=== PATIENT | male | born 1995 | race African-American/Black ===

== ENCOUNTER 2025-02-13 14:49 | Emergency (ER) | payer MEDICAID, SELFPAY ==
[2025-02-13 14:55] VITALS: BP 125/78; PULSE 80; RESP 16; TEMP 36.7; O2SAT 100; BMI 23.3
--- NOTE | 2025-02-13 14:59 | ED_ITS ---
HPI - Skin/Abscess/Foreign Bdy General Chief complaint: Skin/Abscess/Foreign Body Stated complaint: Abscesses both underarms Time Seen by Provider: 02/13/25 18:26 Source: patient Mode of arrival: ambulatory Limitations: no limitations History of Present Illness ED Provider: Dilma Alfonso PA-C HPI narrative: 29 yo male with no significant medical history presents to the ER for evaluation of painful lumps in his underarm area for the last 3 days. He reports the areas have been getting more painful and it hurts to move his arms. He denies history of the same. He does not shave the area. He denies any drainage from the area. No other lesions on his body. Not diabetic. No fever or chills. MD complaint: abscess/boil Onset (ago): day(s) Tetanus up to date: yes Location: LUE and RUE Severity: severe Pain Consistency: constant Relieving factors: rest Exacerbating factors: palpation and movement Context: none Associated symptoms: denies other symptoms Treatments prior to arrival: attempted to drain pus at home (warm compresses) Related Data Previous Rx's ?Medication ?Instructions ?Recorded doxycycline hyclate 100 mg tablet 100 mg PO BID #14 tabs 02/13/25 Allergies Allergy/AdvReac Type Severity Reaction Status Date / Time No Known Allergies Allergy Verified 02/13/25 15:01 Review of Systems Review of Systems: Yes all other systems are reviewed and are negative [facility] Social History Social History Smoked in Last 30 Days: No Use of substances other than those prescribed or required for medical reasons: No Advance Directives: No Advance Directives Information Provided: No Physical Exam Vital Signs: Vital Signs: Last Vital Signs Temp 98.5 F 02/13/25 19:18 Pulse 57 02/13/25 19:18 Resp 18 02/13/25 19:18 BP 128/83 02/13/25 19:18 Pulse Ox 100 02/13/25 19:18 O2 Del Method Room Air 02/13/25 19:18 BMI result Body Mass Index 23.3 Appearance: Alert. Oriented X3. appears uncomfortable. HEENT: normal inspection CVS: Normal heart rate and rhythm. Pulses normal. Respiratory: No respiratory distress. Skin: Skin warm and dry. Normal skin color. Normal skin turgor. No rashes. Extremities: bilateral underarms with areas of swelling, tenderness, fluctuance and erythema - right underarm with 3cm x1cm and left underarm 2cm x 1cm with yellow drainage. Neuro: Oriented X 3. grossly normal, nonfocal Course Course Course Narrative: 02/13/25 1459 YUE [place] This is a Rapid Medical Examination (RME) performed by Denys Escamilla PA-C in triage. Full HPI, ROS, assessment and treatment plan per primary provider in the Main ED. Hx: 29 yo M here w/ b/l axillary abscesses x3 days. pain worse w/ mvmt. drainage from L abscess. no fever, reports chills. applying warm compresses. no hx similar. Plan: I&D Medications Administered Discontinued Medications Generic Name Dose Route Start Last Admin Trade Name Freq PRN Reason Stop Dose Admin Acetaminophen 975 mg 02/13/25 18:41 02/13/25 18:50 Acetaminophen 325 Mg Tablet PO 02/13/25 18:42 975 mg ONCE ONE Administration Doxycycline Monohydrate 100 mg 02/13/25 18:41 02/13/25 18:50 Doxycycline Monohydrate 100 Mg Capsule PO 02/13/25 18:42 100 mg ONCE ONE Administration Ibuprofen 600 mg 02/13/25 18:41 02/13/25 18:50 Ibuprofen 600 Mg Tablet PO 02/13/25 18:42 600 mg ONCE ONE Administration Medical Decision Making Medical Decision Making [facility] Narrative: 29 yo male presenting to the ER for evaluation of painful abscesses in his bilateral axillary areas. amenable to I&D and patient agreeable to procedure. tolerated well. given mild surrounding cellulitic changes on the right will treat with coarse of doxycycline. patient counseled on management s/p I&D including warm compresses, abx, and montioring for worsening symptoms. stable for d/c home. Differential Diagnosis Differential Diagnoses: The differential diagnosis associated with the presentation includes abscess, cellulitis, hidradentiits suppritiva, folliculitis, lymphadenoapthy Procedures Abscess I/D Site: upper extremity Side (if applicable): left and right Local Anesthetic: lidocaine 1% Amount of anesthesia used (mL): 1 Technique: incised with blade Irrigation: Yes Packing used?: none Complications: pain Discharge Plan Discharge Clinical Impression: Abscess of skin or subcutaneous tissue Qualifiers: Site of cutaneous abscess: extremity Site of cutaneous abscess of extremity: upper extremity Laterality: unspecified laterality Qualified Code(s): L02.419 - Cutaneous abscess of limb, unspecified Patient Disposition: Home, Self-Care Instructions: Abscess Incision and Drainage (DC) Additional Instructions: Take the prescribed antibiotics as directed, complete the entire course and do not miss any doses - next dose is due in the morning Use warm compresses to the area several times per day Take ibuprofen and tylenol as needed for pain If you develop new or worsening symptoms call 911 or come back to the ER for further evaluation. Prescriptions: New doxycycline hyclate 100 mg tablet 100 mg PO BID Qty: 14 0RF Interventions: ED Discharge Assessment Last Done: 02/13/25 19:18 Discharge Date/Time: 02/13/25 19:21 Print Language: Ugandan
[2025-02-13 16:58] VITALS: BP 117/71; PULSE 57; RESP 16; TEMP 36.8; O2SAT 98
[2025-02-13] MEDS: Ibuprofen 600 MG TABLET PO (18:50)
[2025-02-13] MEDS: Doxycycline Monohydrate 100 MG CAPSULE PO (18:50)
[2025-02-13] MEDS: Acetaminophen 325 MG TABLET 975 MG PO (18:50)
--- NOTE | 2025-02-13 18:59 | PC.NURSE ---
Informed YUE Perez that pt. now c/o chest discomfort/ anxiety after having abscess drained. N o new orders at this time. Informed pt. that PA will come and chat when shes available.
[2025-02-13 19:17] VITALS: BP 128/83; PULSE 57; RESP 18; TEMP 36.9; O2SAT 100
[2025-02-13 19:18] VITALS: BP 128/83; PULSE 57; RESP 18; TEMP 36.9; O2SAT 100
== END 2025-02-13 19:21 | disposition home or self-care (01) ==
LOC: HO.ED 18:48
PROVIDERS: Emergency Provider Emergency Medicine
DX: L02.412 Cutaneous abscess of left axilla (principal); L02.411 Cutaneous abscess of right axilla; M79.622 Pain in left upper arm; M79.621 Pain in right upper arm
CPT/HCPCS: 10060; 99283; 99284

== ENCOUNTER 2025-03-03 17:19 | Emergency (ER) | payer MEDICAID, SELFPAY ==
[2025-03-03 17:39] VITALS: PULSE 94; RESP 18; TEMP 36.9; O2SAT 99; BMI 22.9
--- NOTE | 2025-03-03 17:39 | ED.SKABFB ---
HPI - Skin/Abscess/Foreign Bdy General Chief complaint: Skin/Abscess/Foreign Body Stated complaint: rashaad armpit abscesses Time Seen by Provider: 03/04/25 00:35 History of Present Illness ED Provider: Omero DE LA CRUZ narrative: The patient is a generally healthy 30-year-old male. He was here 2-1/2 weeks ago because he seemed to have soft tissue abscesses in both axilla. These were both incised and drained. The patient was given a prescription for doxycycline. The patient says that the abscesses seemed to improve for awhile but returns tonight because of worsening pain and swelling in both axillae. No fever, sweats, chills. The patient says he never picked up the prescription for antibiotics after being seen here on February 13. Related Data Previous Rx's ?Medication ?Instructions ?Recorded doxycycline hyclate 100 mg tablet 100 mg PO BID #14 tabs 02/13/25 acetaminophen 500 mg capsule 1,000 mg (2 x 500 mg) PO Q8H PRN 03/04/25 fever or pain #14 caps cephalexin 500 mg capsule 500 mg PO QID 7 days #28 caps 03/04/25 ibuprofen 400 mg tablet 400 mg PO Q6H PRN pain #14 tabs 03/04/25 Allergies Allergy/AdvReac Type Severity Reaction Status Date / Time No Known Allergies Allergy Verified 03/03/25 17:43 Review of Systems Review of Systems: Yes all other systems are reviewed and are negative [facility] Social History Social History Advance Directives: No Advance Directives Information Provided: No Physical Exam Vital Signs: Vital Signs: Last Vital Signs Temp 98.5 F 03/04/25 02:53 Pulse 89 03/04/25 02:53 Resp 16 03/04/25 02:53 BP 137/89 03/04/25 02:53 Pulse Ox 99 03/04/25 02:53 O2 Del Method Room Air 03/04/25 02:53 BMI result Body Mass Index 22.9 Const: Other: The patient is a muscular and athletic looking 30-year-old who was awake and alert and looks somewhat uncomfortable. Orientation/consciousness: patient oriented x3 HEENT: Other: Face is symmetrical, mucous membranes moist. Eyes: General: appearance normal, both eyes and all related structures Resp: Effort & Inspection: normal respiratory effort Auscultation: clear to auscultation bilaterally Cardio: Rate: regular rate Rhythm: regular rhythm Heart sounds: S1 normal heart sound present and S2 normal heart sound present Skin: Other: The patient has swelling to the skin of both axillae. On the left side there was no evidence of any spontaneous drainage. There is an area of swelling, tenderness, and fluctuance. On the right axilla there is also an area of swelling, tenderness, and fluctuance. This swelling on the right axilla was draining slightly spontaneously. Neuro: General: patient oriented x3, gait normal, tone normal, moves all extremities, no focal motor deficits and CN's II-XI intact bilaterally Extrem: Other: The patient has soft tissue swelling and tenderness and fluctuance in areas of both axilla. The swelling in the right axilla was spontaneously draining pus. He has good range of motion of the joints of the arms. Course Course Course Narrative: This is a Rapid Medical Exam performed in triage by Katia Wilkinson PA-C. Full HPI, ROS and PE to be performed by primary ED provider. 30 yo M presenting to the ED c/o abscesses to bilateral axilla x2 weeks. Admits R axilla opened / draining today. denies fever PE: +fluctuance abscesses to b/l axilla. R axilla pointing Plan: Need I&D Medications Administered Discontinued Medications Generic Name Dose Route Start Last Admin Trade Name Leonq PRN Reason Stop Dose Admin Acetaminophen 975 mg 03/04/25 02:11 03/04/25 02:30 Acetaminophen 325 Mg Tablet PO 03/04/25 02:12 975 mg ONCE ONE Administration Cephalexin HCl 1,000 mg 03/04/25 02:11 03/04/25 02:30 Cephalexin 500 Mg Capsule PO 03/04/25 02:12 1,000 mg ONCE ONE Administration Ketorolac Tromethamine 30 mg 03/04/25 02:11 03/04/25 02:30 Ketorolac Tromethamine 30 Mg/Ml Vial IM 03/04/25 02:12 30 mg ONCE ONE Administration Lidocaine HCl 5 ml 03/04/25 00:57 03/04/25 01:22 Lidocaine Hcl 1 % Mpf 5 Ml Vial INFILTRATI 03/04/25 00:58 5 ml ONCE ONE Administration Medical Decision Making Medical Decision Making MDM Narrative: The patient is a 30-year-old male who is generally in good health who seems to be recently have developed problems with abscesses in both of his axillae. He had drainage procedures done on both of these axillae 18 days ago. He presents today with a recurrence of pain and swelling. I examined both of the areas of swelling with ultrasound and I felt the ultrasound suggested some fluid collection in each axilla. The patient consented to incision and drainage procedures in each axilla. I performed incision and drainage procedures in each axilla with drainage of pus bilaterally. The patient tolerated the procedures well. He will be started on cephalexin. He was feeling better. Procedures Abscess I/D Site: upper extremity (Right axilla) Side (if applicable): left and right Amount of anesthesia used (mL): 2.5 Technique: incised with blade Amount of fluid expressed (mL): 5 Sent for culture/gram staining?: No Irrigation: No Packing used?: none Complications: other (No immediate complications) Discharge Plan Discharge Clinical Impression: Abscess of axilla, left, Abscess of axilla, right Patient Disposition: Home, Self-Care Instructions: Abscess Follow-up (ED), Abscess Incision and Drainage (DC) Additional Instructions: Please take the antibiotic cephalexin 4 times a day as prescribed. You may use the prescribed acetaminophen and ibuprofen as needed for pain. Please contact the General surgery office in the morning to make a follow up appointment in about a week or so for a recheck. Please try to also work on getting a primary care doctor. You has been given the contact information for some local primary care practices. Return to the emergency room if you are significantly worse. Prescriptions: New cephalexin 500 mg capsule 500 mg PO QID 7 Days Qty: 28 0RF acetaminophen 500 mg capsule 1,000 mg PO Q8H PRN (Reason: fever or pain) Qty: 14 0RF ibuprofen 400 mg tablet 400 mg PO Q6H PRN (Reason: pain) Qty: 14 0RF No Action doxycycline hyclate 100 mg tablet 100 mg PO BID Qty: 14 0RF Referrals: [facility] [place], [place] General Surgeons [Provider Group] (bilateral axillary abscesses) [facility] [Provider Group] [facility] [place] [place] Primary Care, [place] [Provider Group] [facility] [place] [place] [facility] Tara Lemos MD [Physician] - Interventions: ED Discharge Assessment Last Done: 03/04/25 02:53 Discharge Date/Time: 03/04/25 02:54 Print Language: Kittitian
[2025-03-03 22:55] VITALS: BP 131/71; PULSE 60; RESP 18; TEMP 37.3; O2SAT 96
--- NOTE | 2025-03-04 01:00 | PC.NURSE ---
at bedside with pt draining abscess at this time
[2025-03-04] MEDS: Lidocaine HCl 1 % MPF 5 ML VIAL INFILTRATI (01:22)
[2025-03-04] MEDS: cephALEXin 500 MG CAPSULE 1000 MG PO (02:30)
[2025-03-04] MEDS: Ketorolac Tromethamine 30 MG/ML VIAL IM (02:30)
[2025-03-04] MEDS: Acetaminophen 325 MG TABLET 975 MG PO (02:30)
[2025-03-04 02:39] VITALS: BP 137/89; PULSE 89; RESP 16; TEMP 36.9; O2SAT 99
[2025-03-04 02:53] VITALS: BP 137/89; PULSE 89; RESP 16; TEMP 36.9; O2SAT 99
== END 2025-03-04 02:54 | disposition home or self-care (01) ==
PROVIDERS: Emergency Provider Emergency Medicine
DX: L02.412 Cutaneous abscess of left axilla (principal); L02.411 Cutaneous abscess of right axilla; M79.629 Pain in unspecified upper arm
CPT/HCPCS: 10060; 96372; 99284; J1885; J2003